=== PATIENT | male | born 1970 | race Caucasian/White ===

== ENCOUNTER 2023-07-05 11:48 | Inpatient (IN) | payer OTHER ==
[2023-07-05] MEDS ORDERED: NALOXONE HCL (KLOXXADO) 8 MG SPRAY NS PRN (12:26)
[2023-07-05] MEDS ORDERED: BISMUTH SUBSALICYLATE 524 MG/30 ML PO PRN (12:26)
[2023-07-05] MEDS ORDERED: LOPERAMIDE HCL 2 MG CAPSULE PO PRN (12:26)
[2023-07-05] MEDS ORDERED: BENZONATATE 200 MG CAPSULE PO PRN (12:26)
[2023-07-05] MEDS ORDERED: BENZOCAINE/MENTHOL (CHLORASEPTIC ) LOZENGE MM PRN (12:26)
[2023-07-05] MEDS ORDERED: POLYETHYLENE GLYCOL (HEALTHYLAX) 3350 17 GM PACKET PO PRN (12:26)
[2023-07-05] MEDS ORDERED: guaiFENesin 600 MG TABLET.ER (FP) PO PRN (12:26)
[2023-07-05] MEDS ORDERED: NALOXONE HCL 0.4 MG/ML VIAL IM PRN (12:26)
[2023-07-05] MEDS ORDERED: MAG HYDROX/AL HYDROX/SIMETH 30 ML UNIT-DOSE CUP PO PRN (12:26)
[2023-07-05] MEDS ORDERED: ONDANSETRON *ODT* 4 MG TABLET SL PRN (12:26)
[2023-07-05] MEDS ORDERED: METHOCARBAMOL 500 MG TABLET PO PRN (12:26)
[2023-07-05] MEDS ORDERED: DICYCLOMINE HCL 10 MG CAPSULE PO PRN (12:26)
[2023-07-05] MEDS ORDERED: MAGNESIUM HYDROX 2400MG/30ML ORAL SUSPENSION 30 ML CUP PO PRN (12:26)
[2023-07-05] MEDS ORDERED: PERMETHRIN (NIX CREAM SCALP RINSE) 59 ML 1% BOTTLE TP STA (12:42)
[2023-07-05] MEDS ORDERED: PERMETHRIN (NIX CREAM SCALP RINSE) 59 ML 1% BOTTLE TP ONE (12:42)
[2023-07-05] MEDS ORDERED: BACITRACIN ZINC 15 GM TUBE TOPICAL OINTMENT TP SCH (12:45)
[2023-07-05] MEDS ORDERED: PRENATAL VITAMINS W/ FOLIC ACID TABLET (FP) PO ONE (12:58)
[2023-07-05] MEDS ORDERED: IBUPROFEN 600 MG TABLET (FP) PO ONE (12:58)
[2023-07-05] MEDS ORDERED: NICOTINE 7 MG/24 HOURS TOPICAL PATCH TD ONE (12:58)
[2023-07-05] MEDS: IBUPROFEN 600 MG TABLET (FP) PO PRN ×2 (13:04→18:28)
[2023-07-05] MEDS: NICOTINE 7 MG/24 HOURS TOPICAL PATCH TD SCH (13:06)
[2023-07-05] MEDS: PRENATAL VITAMINS W/ FOLIC ACID TABLET (FP) PO SCH (13:06)
[2023-07-05 13:24] VITALS: BMI 22.7
[2023-07-05] MEDS ORDERED: PERMETHRIN 5% TOPICAL CREAM 60 GM TUBE ONE (14:01)
[2023-07-05] MEDS: ALBUTEROL SO4 HFA INHALER IH PRN (17:15)
[2023-07-05] MEDS ORDERED: TUBERCULIN PPD 5 TU/0.1ML VIAL ID ONE (17:53)
[2023-07-05] MEDS: THIAMINE HCL 100 MG TABLET (FP) PO SCH (21:51)
[2023-07-05] MEDS: MELATONIN 5 MG TABLETS PO SCH (21:51)
[2023-07-05] MEDS: BACITRACIN 0.9 GM PACKET TP SCH (21:51)
[2023-07-06] MEDS: ALBUTEROL SO4 HFA INHALER IH PRN ×5 (00:40→21:46)
[2023-07-06] MEDS: IBUPROFEN 600 MG TABLET (FP) PO PRN ×2 (00:40→13:51)
[2023-07-06] MEDS: IBUPROFEN 400 MG TABLET (FP) PO PRN (06:57)
[2023-07-06] MEDS ORDERED: TUBERCULIN PPD 5 TU/0.1ML VIAL ID ONE (10:14)
[2023-07-06] MEDS: NICOTINE 7 MG/24 HOURS TOPICAL PATCH TD SCH (10:17)
[2023-07-06] MEDS: BACITRACIN 0.9 GM PACKET TP SCH ×2 (10:17→21:46)
[2023-07-06] MEDS: PRENATAL VITAMINS W/ FOLIC ACID TABLET (FP) PO SCH (10:17)
[2023-07-06] MEDS: ACETAMINOPHEN 325 MG TABLET (FP) PO PRN (10:18)
[2023-07-06 10:24] LABS: HEMATOCRIT 43.9 % (35.4-49); HEMOGLOBIN 14.4 GM/dL (11.7-16.9); MCH 31.5 pg (25.7-33.7); MCHC 32.8 g/dl (32.0-35.9); MEAN PLT VOLUME 6.8 fl (7.5-11.1); PLATELET COUNT 396 10^3/uL (134-434); RBC 4.57 M/mm3 (4.00-5.60); RDW 13.7 % (11.9-15.9); WHITE BLOOD COUNT 19.4 K/mm3 (4.0-10.0)
[2023-07-06 10:27] LABS: CHLORIDE 108 mmol/L (98-107); POTASSIUM 4.7 mmol/L (3.5-5.1); SODIUM 138 mmol/L (136-145)
[2023-07-06 10:29] LABS: CALCIUM 8.7 mg/dL (8.5-10.1)
[2023-07-06 10:30] LABS: ALBUMIN 3.1 g/dl (3.4-5.0); ANION GAP 1 mmol/L (4-13); BLOOD UREA NITROGEN 21.4 mg/dL (7-18); CO2 29 mmol/L (21-32); GLUCOSE,RANDOM 153 mg/dL (74-106)
[2023-07-06 10:33] LABS: CREATININE 0.9 mg/dL (0.55-1.3); SGOT/AST 19 U/L (15-37); SGPT/ALT 26 U/L (13-61)
[2023-07-06 10:35] LABS: BILIRUBIN,TOTAL 0.3 mg/dL (0.2-1); TOT PROT 5.9 g/dl (6.4-8.2)
[2023-07-06 10:36] LABS: ALK PHOS 89 U/L (45-117)
[2023-07-06] MEDS: BACLOFEN 10 MG TABLET (FP) PO SCH ×2 (13:50→21:46)
[2023-07-06] MEDS: MELATONIN 5 MG TABLETS PO SCH (21:46)
[2023-07-06] MEDS: THIAMINE HCL 100 MG TABLET (FP) PO SCH (21:46)
[2023-07-06] MEDS: QUEtiapine FUMARATE 50 MG TABLET PO SCH (21:47)
[2023-07-07] MEDS: ALBUTEROL SO4 HFA INHALER IH PRN ×6 (01:30→21:28)
[2023-07-07] MEDS ORDERED: TUBERCULIN PPD 5 TU/0.1ML VIAL ID ONE ×2 (04:00→06:00)
[2023-07-07] MEDS: BACLOFEN 10 MG TABLET (FP) PO SCH ×4 (06:57→21:29)
[2023-07-07] MEDS: IBUPROFEN 600 MG TABLET (FP) PO PRN ×3 (06:58→21:29)
[2023-07-07 07:07] VITALS: RESP 18
[2023-07-07] MEDS: NICOTINE 7 MG/24 HOURS TOPICAL PATCH TD SCH (10:31)
[2023-07-07] MEDS: PRENATAL VITAMINS W/ FOLIC ACID TABLET (FP) PO SCH (10:31)
[2023-07-07] MEDS: ACETAMINOPHEN 325 MG TABLET (FP) PO PRN (10:32)
[2023-07-07] MEDS: BACITRACIN 0.9 GM PACKET TP SCH ×2 (11:20→21:32)
[2023-07-07] MEDS: FLUTICASONE PROP 0.05% 16 GM NASAL SPRAY NS SCH (13:39)
[2023-07-07] MEDS ORDERED: hydrOXYzine PAMOATE 50 MG CAPSULE (FP) PO ONE (13:55)
[2023-07-07] MEDS: hydrOXYzine PAMOATE 25 MG CAPSULE (FP) PO PRN (21:29)
[2023-07-07] MEDS: QUEtiapine FUMARATE 50 MG TABLET PO SCH (21:29)
[2023-07-07] MEDS: THIAMINE HCL 100 MG TABLET (FP) PO SCH (21:29)
[2023-07-07] MEDS: MELATONIN 5 MG TABLETS PO SCH (21:29)
[2023-07-07] MEDS: ARTIFICIAL TEARS (POLYVINYL ALCOHOL) OPTH DROPS OU PRN (21:30)
[2023-07-08] MEDS: BACLOFEN 10 MG TABLET (FP) PO SCH ×3 (07:00→21:38)
[2023-07-08] MEDS: IBUPROFEN 600 MG TABLET (FP) PO PRN ×2 (07:02→13:46)
[2023-07-08] MEDS: ALBUTEROL SO4 HFA INHALER IH PRN ×3 (07:03→21:39)
[2023-07-08] MEDS: ARTIFICIAL TEARS (POLYVINYL ALCOHOL) OPTH DROPS OU PRN (07:04)
[2023-07-08] MEDS: hydrOXYzine PAMOATE 25 MG CAPSULE (FP) PO PRN ×2 (07:06→21:40)
[2023-07-08] MEDS: PRENATAL VITAMINS W/ FOLIC ACID TABLET (FP) PO SCH (10:20)
[2023-07-08] MEDS: BACITRACIN 0.9 GM PACKET TP SCH ×2 (10:20→21:38)
[2023-07-08] MEDS: NICOTINE 7 MG/24 HOURS TOPICAL PATCH TD SCH (10:21)
[2023-07-08] MEDS: FLUTICASONE PROP 0.05% 16 GM NASAL SPRAY NS SCH (10:21)
[2023-07-08] MEDS: QUEtiapine FUMARATE 50 MG TABLET PO SCH (21:38)
[2023-07-08] MEDS: THIAMINE HCL 100 MG TABLET (FP) PO SCH (21:38)
[2023-07-08] MEDS: MELATONIN 5 MG TABLETS PO SCH (21:38)
[2023-07-08] MEDS: IBUPROFEN 400 MG TABLET (FP) PO PRN (21:40)
[2023-07-09] MEDS: ALBUTEROL SO4 HFA INHALER IH PRN ×4 (06:39→19:45)
[2023-07-09] MEDS: BACLOFEN 10 MG TABLET (FP) PO SCH ×3 (06:39→21:40)
[2023-07-09] MEDS: hydrOXYzine PAMOATE 25 MG CAPSULE (FP) PO PRN ×2 (06:41→19:45)
[2023-07-09] MEDS: IBUPROFEN 600 MG TABLET (FP) PO PRN ×2 (06:41→13:48)
[2023-07-09] MEDS: ARTIFICIAL TEARS (POLYVINYL ALCOHOL) OPTH DROPS OU PRN (06:42)
[2023-07-09] MEDS: FLUTICASONE PROP 0.05% 16 GM NASAL SPRAY NS SCH (10:14)
[2023-07-09] MEDS: BACITRACIN 0.9 GM PACKET TP SCH ×2 (10:14→22:37)
[2023-07-09] MEDS: PRENATAL VITAMINS W/ FOLIC ACID TABLET (FP) PO SCH (10:14)
[2023-07-09] MEDS: NICOTINE 7 MG/24 HOURS TOPICAL PATCH TD SCH (10:15)
[2023-07-09] MEDS: MELATONIN 5 MG TABLETS PO SCH (21:40)
[2023-07-09] MEDS: THIAMINE HCL 100 MG TABLET (FP) PO SCH (21:40)
[2023-07-09] MEDS: QUEtiapine FUMARATE 50 MG TABLET PO SCH (21:40)
[2023-07-09] MEDS: IBUPROFEN 400 MG TABLET (FP) PO PRN (21:41)
[2023-07-10] MEDS: BACLOFEN 10 MG TABLET (FP) PO SCH (06:47)
[2023-07-10] MEDS: hydrOXYzine PAMOATE 25 MG CAPSULE (FP) PO PRN (06:48)
[2023-07-10 07:04] VITALS: BP 118/70; PULSE 76; TEMP 97.4
[2023-07-10] MEDS: PRENATAL VITAMINS W/ FOLIC ACID TABLET (FP) PO SCH (09:43)
[2023-07-10] MEDS: NICOTINE 7 MG/24 HOURS TOPICAL PATCH TD SCH (09:44)
[2023-07-10] MEDS: BACITRACIN 0.9 GM PACKET TP SCH (09:44)
[2023-07-10] MEDS: FLUTICASONE PROP 0.05% 16 GM NASAL SPRAY NS SCH (09:44)
== END 2023-07-10 10:00 | disposition home or self-care (01) | DRG 772 ==
LOC: YASAS 11:48 → Y5N 15:30
PROVIDERS: ADMIT Allergy & Immunology; ATTEND Psychiatry & Neurology Pain Medicine
PROC: HZ42ZZZ Group Counseling for Substance Abuse Treatment, Cognitive-Behavioral (ICD-10-PCS; principal; 2023-07-05)
DX: F14.20 Cocaine dependence, uncomplicated (principal); F17.210 Nicotine dependence, cigarettes, uncomplicated; F41.9 Anxiety disorder, unspecified; F32.9 Major depressive disorder, single episode, unspecified; F43.10 Post-traumatic stress disorder, unspecified; J45.909 Unspecified asthma, uncomplicated; M62.838 Other muscle spasm; Z87.828 Personal history of other (healed) physical injury and trauma; Z59.01 Sheltered homelessness; Z56.0 Unemployment, unspecified
CPT/HCPCS: 36415; 80053; 80307; 82962; 83036; 85027; 86780; 87635; 93005; 93010; J0475; Q0162

== ENCOUNTER 2023-07-20 18:49 | Inpatient (IN) | payer OTHER ==
[2023-07-20 19:24] VITALS: BMI 23.2
[2023-07-20] MEDS ORDERED: ACETAMINOPHEN 325 MG TABLET (FP) PO PRN ×2 (19:40→21:46)
[2023-07-20] MEDS ORDERED: MAG HYDROX/AL HYDROX/SIMETH 30 ML UNIT-DOSE CUP PO PRN (19:40)
[2023-07-20] MEDS ORDERED: BENZONATATE 200 MG CAPSULE PO PRN (19:40)
[2023-07-20] MEDS ORDERED: BENZOCAINE/MENTHOL (CHLORASEPTIC ) LOZENGE MM PRN (19:40)
[2023-07-20] MEDS ORDERED: LOPERAMIDE HCL 2 MG CAPSULE PO PRN (19:40)
[2023-07-20] MEDS ORDERED: POLYETHYLENE GLYCOL (HEALTHYLAX) 3350 17 GM PACKET PO PRN (19:40)
[2023-07-20] MEDS ORDERED: MAGNESIUM HYDROX 2400MG/30ML ORAL SUSPENSION 30 ML CUP PO PRN (19:40)
[2023-07-20] MEDS ORDERED: guaiFENesin 600 MG TABLET.ER (FP) PO PRN (19:40)
[2023-07-20] MEDS ORDERED: COLLOIDAL OATMEAL 1 BAR EACH TP PRN (19:40)
[2023-07-20] MEDS ORDERED: P-EPHED 60MG/TRIPROLIDI 2.5MG TABLET PO PRN (19:40)
[2023-07-20] MEDS ORDERED: IBUPROFEN 400 MG TABLET (FP) PO PRN (19:40)
[2023-07-20] MEDS: QUEtiapine FUMARATE 50 MG TABLET PO ONE (21:56)
[2023-07-20] MEDS: LIDOCAINE PATCH REMOVAL MC SCH (21:56)
[2023-07-20] MEDS: CEFUROXIME AXETIL 500 MG TABLET PO SCH (21:56)
[2023-07-20] MEDS: MELATONIN 5 MG TABLETS PO SCH (21:57)
[2023-07-20] MEDS: THIAMINE HCL 100 MG TABLET (FP) PO SCH (21:57)
[2023-07-20] MEDS ORDERED: PATIENT'S OWN MEDICATION (NON-FORMULARY) (Lidocaine Patch Removal 1 EACH Each) MC SCH (22:00)
[2023-07-20] MEDS: BUDESONIDE/FORMETEROL FUMARATE 160/4.5 mcg INHALER IH SCH (22:20)
[2023-07-21] MEDS: BUDESONIDE/FORMETEROL FUMARATE 160/4.5 mcg INHALER IH SCH ×2 (09:53→21:19)
[2023-07-21] MEDS: CEFUROXIME AXETIL 500 MG TABLET PO SCH ×2 (09:54→21:19)
[2023-07-21] MEDS: PRENATAL VITAMINS W/ FOLIC ACID TABLET (FP) PO SCH (09:54)
[2023-07-21] MEDS: LIDOCAINE 4% PATCH TP SCH (09:55)
[2023-07-21] MEDS: FLUTICASONE PROP 0.05% 16 GM NASAL SPRAY NS SCH (09:55)
[2023-07-21] MEDS ORDERED: NICOTINE 14 MG/24 HOURS TOPICAL PATCH TD SCH (10:00)
[2023-07-21] MEDS ORDERED: DOXYCYCLINE HYCLATE 100 MG CAPSULE PO SCH (10:00)
[2023-07-21] MEDS: DOXYCYCLINE HYCLATE 100 MG TABLET PO SCH ×2 (10:18→17:53)
[2023-07-21] MEDS ORDERED: NICOTINE 14 MG/24 HOURS TOPICAL PATCH TD PRN (11:38)
[2023-07-21] MEDS: BACLOFEN 10 MG TABLET (FP) PO PRN (17:55)
[2023-07-21] MEDS: MELATONIN 5 MG TABLETS PO SCH (21:18)
[2023-07-21] MEDS: THIAMINE HCL 100 MG TABLET (FP) PO SCH (21:18)
[2023-07-21] MEDS: QUEtiapine FUMARATE 50 MG TABLET PO SCH (21:19)
[2023-07-21] MEDS: IBUPROFEN 600 MG TABLET (FP) PO PRN (21:20)
[2023-07-21] MEDS: LIDOCAINE PATCH REMOVAL MC SCH (21:20)
[2023-07-22] MEDS: DOXYCYCLINE HYCLATE 100 MG TABLET PO SCH ×2 (06:39→17:09)
[2023-07-22] MEDS: ALBUTEROL SO4 HFA INHALER IH PRN (09:05)
[2023-07-22] MEDS: hydrOXYzine PAMOATE 25 MG CAPSULE (FP) PO PRN (09:56)
[2023-07-22] MEDS: PRENATAL VITAMINS W/ FOLIC ACID TABLET (FP) PO SCH (09:57)
[2023-07-22] MEDS: CEFUROXIME AXETIL 500 MG TABLET PO SCH ×2 (09:57→21:10)
[2023-07-22] MEDS: BUDESONIDE/FORMETEROL FUMARATE 160/4.5 mcg INHALER IH SCH ×2 (09:58→21:13)
[2023-07-22] MEDS: LIDOCAINE 4% PATCH TP SCH (09:58)
[2023-07-22] MEDS: FLUTICASONE PROP 0.05% 16 GM NASAL SPRAY NS SCH (09:58)
[2023-07-22] MEDS: BACLOFEN 10 MG TABLET (FP) PO PRN ×2 (10:00→21:12)
[2023-07-22] MEDS: LIDOCAINE PATCH REMOVAL MC SCH (21:09)
[2023-07-22] MEDS: QUEtiapine FUMARATE 50 MG TABLET PO SCH (21:10)
[2023-07-22] MEDS: MELATONIN 5 MG TABLETS PO SCH (21:10)
[2023-07-22] MEDS: IBUPROFEN 600 MG TABLET (FP) PO PRN (21:12)
[2023-07-22] MEDS: THIAMINE HCL 100 MG TABLET (FP) PO SCH (21:50)
[2023-07-23] MEDS: DOXYCYCLINE HYCLATE 100 MG TABLET PO SCH ×2 (06:41→17:45)
[2023-07-23] MEDS: BUDESONIDE/FORMETEROL FUMARATE 160/4.5 mcg INHALER IH SCH ×2 (09:35→21:32)
[2023-07-23] MEDS: hydrOXYzine PAMOATE 25 MG CAPSULE (FP) PO PRN (09:36)
[2023-07-23] MEDS: BACLOFEN 10 MG TABLET (FP) PO PRN ×2 (09:36→21:30)
[2023-07-23] MEDS: PRENATAL VITAMINS W/ FOLIC ACID TABLET (FP) PO SCH (09:37)
[2023-07-23] MEDS: CEFUROXIME AXETIL 500 MG TABLET PO SCH ×2 (09:37→21:30)
[2023-07-23] MEDS: FLUTICASONE PROP 0.05% 16 GM NASAL SPRAY NS SCH (09:37)
[2023-07-23] MEDS: LIDOCAINE 4% PATCH TP SCH (09:37)
[2023-07-23] MEDS: LIDOCAINE PATCH REMOVAL MC SCH (21:30)
[2023-07-23] MEDS: QUEtiapine FUMARATE 50 MG TABLET PO SCH (21:30)
[2023-07-23] MEDS: THIAMINE HCL 100 MG TABLET (FP) PO SCH (21:30)
[2023-07-23] MEDS: MELATONIN 5 MG TABLETS PO SCH (21:31)
[2023-07-24] MEDS: DOXYCYCLINE HYCLATE 100 MG TABLET PO SCH ×2 (06:41→18:29)
[2023-07-24] MEDS: hydrOXYzine PAMOATE 25 MG CAPSULE (FP) PO PRN (06:42)
[2023-07-24] MEDS: PRENATAL VITAMINS W/ FOLIC ACID TABLET (FP) PO SCH (09:45)
[2023-07-24] MEDS: FLUTICASONE PROP 0.05% 16 GM NASAL SPRAY NS SCH (09:46)
[2023-07-24] MEDS: CEFUROXIME AXETIL 500 MG TABLET PO SCH ×2 (09:46→21:08)
[2023-07-24] MEDS: BUDESONIDE/FORMETEROL FUMARATE 160/4.5 mcg INHALER IH SCH ×2 (09:46→21:08)
[2023-07-24] MEDS: LIDOCAINE 4% PATCH TP SCH (09:46)
[2023-07-24] MEDS: BACLOFEN 10 MG TABLET (FP) PO PRN (20:26)
[2023-07-24] MEDS: IBUPROFEN 600 MG TABLET (FP) PO PRN (20:26)
[2023-07-24] MEDS: MELATONIN 5 MG TABLETS PO SCH (21:07)
[2023-07-24] MEDS: THIAMINE HCL 100 MG TABLET (FP) PO SCH (21:07)
[2023-07-24] MEDS: QUEtiapine FUMARATE 50 MG TABLET PO SCH (21:08)
[2023-07-24] MEDS: LIDOCAINE PATCH REMOVAL MC SCH (21:08)
[2023-07-25] MEDS: hydrOXYzine PAMOATE 25 MG CAPSULE (FP) PO PRN ×2 (06:53→15:05)
[2023-07-25] MEDS: DOXYCYCLINE HYCLATE 100 MG TABLET PO SCH ×2 (06:53→17:05)
[2023-07-25] MEDS: PRENATAL VITAMINS W/ FOLIC ACID TABLET (FP) PO SCH (09:56)
[2023-07-25] MEDS: BUDESONIDE/FORMETEROL FUMARATE 160/4.5 mcg INHALER IH SCH ×2 (09:58→21:13)
[2023-07-25] MEDS: LIDOCAINE 4% PATCH TP SCH (09:58)
[2023-07-25] MEDS: FLUTICASONE PROP 0.05% 16 GM NASAL SPRAY NS SCH (09:59)
[2023-07-25] MEDS: CEFUROXIME AXETIL 500 MG TABLET PO SCH ×2 (10:33→21:12)
[2023-07-25] MEDS: ALBUTEROL SO4 HFA INHALER IH PRN (17:09)
[2023-07-25] MEDS: IBUPROFEN 600 MG TABLET (FP) PO PRN (19:51)
[2023-07-25] MEDS: BACLOFEN 10 MG TABLET (FP) PO PRN (21:12)
[2023-07-25] MEDS: THIAMINE HCL 100 MG TABLET (FP) PO SCH (21:12)
[2023-07-25] MEDS: MELATONIN 5 MG TABLETS PO SCH (21:12)
[2023-07-25] MEDS: QUEtiapine FUMARATE 50 MG TABLET PO SCH (21:12)
[2023-07-25] MEDS: LIDOCAINE PATCH REMOVAL MC SCH (21:13)
[2023-07-26] MEDS: DOXYCYCLINE HYCLATE 100 MG TABLET PO SCH ×2 (06:31→17:13)
[2023-07-26] MEDS: hydrOXYzine PAMOATE 25 MG CAPSULE (FP) PO PRN ×2 (06:31→14:34)
[2023-07-26] MEDS: LIDOCAINE 4% PATCH TP SCH (09:42)
[2023-07-26] MEDS: CEFUROXIME AXETIL 500 MG TABLET PO SCH (09:43)
[2023-07-26] MEDS: PRENATAL VITAMINS W/ FOLIC ACID TABLET (FP) PO SCH (09:43)
[2023-07-26] MEDS: FLUTICASONE PROP 0.05% 16 GM NASAL SPRAY NS SCH (09:43)
[2023-07-26] MEDS: BUDESONIDE/FORMETEROL FUMARATE 160/4.5 mcg INHALER IH SCH ×2 (09:44→21:15)
[2023-07-26] MEDS: BACLOFEN 10 MG TABLET (FP) PO PRN ×2 (09:45→21:16)
[2023-07-26] MEDS: ALBUTEROL SO4 HFA INHALER IH PRN (12:41)
[2023-07-26] MEDS: IBUPROFEN 600 MG TABLET (FP) PO PRN ×2 (14:36→21:16)
[2023-07-26] MEDS: THIAMINE HCL 100 MG TABLET (FP) PO SCH (21:14)
[2023-07-26] MEDS: MELATONIN 5 MG TABLETS PO SCH (21:14)
[2023-07-26] MEDS: QUEtiapine FUMARATE 50 MG TABLET PO SCH (21:15)
[2023-07-26] MEDS: LIDOCAINE PATCH REMOVAL MC SCH (21:15)
[2023-07-27] MEDS: PRENATAL VITAMINS W/ FOLIC ACID TABLET (FP) PO SCH (09:38)
[2023-07-27] MEDS: ALBUTEROL SO4 HFA INHALER IH PRN (09:38)
[2023-07-27] MEDS: FLUTICASONE PROP 0.05% 16 GM NASAL SPRAY NS SCH (09:38)
[2023-07-27] MEDS: BUDESONIDE/FORMETEROL FUMARATE 160/4.5 mcg INHALER IH SCH ×2 (09:39→21:15)
[2023-07-27] MEDS: LIDOCAINE 4% PATCH TP SCH (09:39)
[2023-07-27] MEDS: BACLOFEN 10 MG TABLET (FP) PO PRN ×2 (09:41→21:16)
[2023-07-27] MEDS: hydrOXYzine PAMOATE 25 MG CAPSULE (FP) PO PRN ×2 (09:41→21:15)
[2023-07-27] MEDS ORDERED: LIDOCAINE 4% PATCH TP PRN (15:44)
[2023-07-27] MEDS: MELATONIN 5 MG TABLETS PO SCH (21:15)
[2023-07-27] MEDS: QUEtiapine FUMARATE 50 MG TABLET PO SCH (21:15)
[2023-07-27] MEDS: THIAMINE HCL 100 MG TABLET (FP) PO SCH (21:15)
[2023-07-27] MEDS: LIDOCAINE PATCH REMOVAL MC SCH (21:15)
[2023-07-28] MEDS: hydrOXYzine PAMOATE 25 MG CAPSULE (FP) PO PRN ×2 (06:46→21:30)
[2023-07-28] MEDS: PRENATAL VITAMINS W/ FOLIC ACID TABLET (FP) PO SCH (10:01)
[2023-07-28] MEDS: FLUTICASONE PROP 0.05% 16 GM NASAL SPRAY NS SCH (10:01)
[2023-07-28] MEDS: BUDESONIDE/FORMETEROL FUMARATE 160/4.5 mcg INHALER IH SCH ×2 (10:01→21:31)
[2023-07-28] MEDS: ALBUTEROL SO4 HFA INHALER IH PRN (16:44)
[2023-07-28] MEDS: QUEtiapine FUMARATE 50 MG TABLET PO SCH (21:30)
[2023-07-28] MEDS: MELATONIN 5 MG TABLETS PO SCH (21:31)
[2023-07-28] MEDS: THIAMINE HCL 100 MG TABLET (FP) PO SCH (21:31)
[2023-07-28] MEDS: LIDOCAINE PATCH REMOVAL MC SCH (21:50)
[2023-07-29] MEDS: hydrOXYzine PAMOATE 25 MG CAPSULE (FP) PO PRN ×3 (06:46→21:21)
[2023-07-29] MEDS: BACLOFEN 10 MG TABLET (FP) PO PRN ×2 (06:47→21:21)
[2023-07-29] MEDS: FLUTICASONE PROP 0.05% 16 GM NASAL SPRAY NS SCH (09:17)
[2023-07-29] MEDS: BUDESONIDE/FORMETEROL FUMARATE 160/4.5 mcg INHALER IH SCH ×2 (09:17→21:21)
[2023-07-29] MEDS: PRENATAL VITAMINS W/ FOLIC ACID TABLET (FP) PO SCH (09:17)
[2023-07-29] MEDS: IBUPROFEN 600 MG TABLET (FP) PO PRN (09:18)
[2023-07-29] MEDS: ALBUTEROL SO4 HFA INHALER IH PRN (19:30)
[2023-07-29] MEDS: THIAMINE HCL 100 MG TABLET (FP) PO SCH (21:21)
[2023-07-29] MEDS: QUEtiapine FUMARATE 50 MG TABLET PO SCH (21:21)
[2023-07-29] MEDS: LIDOCAINE PATCH REMOVAL MC SCH (21:21)
[2023-07-29] MEDS: MELATONIN 5 MG TABLETS PO SCH (21:21)
[2023-07-30] MEDS: ALBUTEROL SO4 HFA INHALER IH PRN (09:13)
[2023-07-30] MEDS: PRENATAL VITAMINS W/ FOLIC ACID TABLET (FP) PO SCH (10:13)
[2023-07-30] MEDS: BUDESONIDE/FORMETEROL FUMARATE 160/4.5 mcg INHALER IH SCH ×2 (10:13→21:19)
[2023-07-30] MEDS: FLUTICASONE PROP 0.05% 16 GM NASAL SPRAY NS SCH (10:14)
[2023-07-30] MEDS: IBUPROFEN 600 MG TABLET (FP) PO PRN (10:15)
[2023-07-30] MEDS: hydrOXYzine PAMOATE 25 MG CAPSULE (FP) PO PRN ×2 (10:15→21:20)
[2023-07-30] MEDS: QUEtiapine FUMARATE 50 MG TABLET PO SCH (21:19)
[2023-07-30] MEDS: MELATONIN 5 MG TABLETS PO SCH (21:19)
[2023-07-30] MEDS: LIDOCAINE PATCH REMOVAL MC SCH (21:19)
[2023-07-30] MEDS: THIAMINE HCL 100 MG TABLET (FP) PO SCH (21:19)
[2023-07-31] MEDS: BUDESONIDE/FORMETEROL FUMARATE 160/4.5 mcg INHALER IH SCH ×2 (09:51→21:09)
[2023-07-31] MEDS: FLUTICASONE PROP 0.05% 16 GM NASAL SPRAY NS SCH (09:51)
[2023-07-31] MEDS: PRENATAL VITAMINS W/ FOLIC ACID TABLET (FP) PO SCH (09:52)
[2023-07-31] MEDS: hydrOXYzine PAMOATE 25 MG CAPSULE (FP) PO PRN ×2 (09:53→21:10)
[2023-07-31] MEDS: IBUPROFEN 600 MG TABLET (FP) PO PRN (17:22)
[2023-07-31] MEDS: ALBUTEROL SO4 HFA INHALER IH PRN (17:23)
[2023-07-31] MEDS: MELATONIN 5 MG TABLETS PO SCH (21:08)
[2023-07-31] MEDS: THIAMINE HCL 100 MG TABLET (FP) PO SCH (21:08)
[2023-07-31] MEDS: QUEtiapine FUMARATE 50 MG TABLET PO SCH (21:09)
[2023-07-31] MEDS: LIDOCAINE PATCH REMOVAL MC SCH (21:09)
[2023-07-31] MEDS: BACLOFEN 10 MG TABLET (FP) PO PRN (21:09)
[2023-08-01] MEDS: hydrOXYzine PAMOATE 25 MG CAPSULE (FP) PO PRN (06:41)
[2023-08-01] MEDS: BACLOFEN 10 MG TABLET (FP) PO PRN (10:03)
[2023-08-01] MEDS: PRENATAL VITAMINS W/ FOLIC ACID TABLET (FP) PO SCH (10:03)
[2023-08-01] MEDS: BUDESONIDE/FORMETEROL FUMARATE 160/4.5 mcg INHALER IH SCH ×2 (10:03→21:10)
[2023-08-01] MEDS: FLUTICASONE PROP 0.05% 16 GM NASAL SPRAY NS SCH (10:52)
[2023-08-01] MEDS: ALBUTEROL SO4 HFA INHALER IH PRN (19:03)
[2023-08-01] MEDS: LIDOCAINE PATCH REMOVAL MC SCH (21:09)
[2023-08-01] MEDS: MELATONIN 5 MG TABLETS PO SCH (21:10)
[2023-08-01] MEDS: THIAMINE HCL 100 MG TABLET (FP) PO SCH (21:10)
[2023-08-01] MEDS: QUEtiapine FUMARATE 50 MG TABLET PO SCH (21:10)
[2023-08-02] MEDS: ALBUTEROL SO4 HFA INHALER IH PRN ×2 (06:52→13:15)
[2023-08-02] MEDS: FLUTICASONE PROP 0.05% 16 GM NASAL SPRAY NS SCH (09:34)
[2023-08-02] MEDS: PRENATAL VITAMINS W/ FOLIC ACID TABLET (FP) PO SCH (09:35)
[2023-08-02] MEDS: hydrOXYzine PAMOATE 25 MG CAPSULE (FP) PO PRN ×2 (09:35→21:17)
[2023-08-02] MEDS: BUDESONIDE/FORMETEROL FUMARATE 160/4.5 mcg INHALER IH SCH ×2 (09:35→21:17)
[2023-08-02] MEDS: LIDOCAINE PATCH REMOVAL MC SCH (21:17)
[2023-08-02] MEDS: MELATONIN 5 MG TABLETS PO SCH (21:17)
[2023-08-02] MEDS: THIAMINE HCL 100 MG TABLET (FP) PO SCH (21:17)
[2023-08-02] MEDS: BACLOFEN 10 MG TABLET (FP) PO PRN (21:17)
[2023-08-02] MEDS: QUEtiapine FUMARATE 50 MG TABLET PO SCH (21:17)
[2023-08-03 06:49] VITALS: BP 102/73; PULSE 63; RESP 16; TEMP 97.7
[2023-08-03] MEDS: ALBUTEROL SO4 HFA INHALER IH PRN (08:30)
[2023-08-03] MEDS: PRENATAL VITAMINS W/ FOLIC ACID TABLET (FP) PO SCH (09:00)
[2023-08-03] MEDS: FLUTICASONE PROP 0.05% 16 GM NASAL SPRAY NS SCH (09:00)
[2023-08-03] MEDS: BUDESONIDE/FORMETEROL FUMARATE 160/4.5 mcg INHALER IH SCH (09:00)
== END 2023-08-03 09:06 | disposition home or self-care (01) | DRG 772 ==
LOC: YASAS 18:49 → Y3E 21:34
PROVIDERS: ADMIT Allergy & Immunology; ATTEND Psychiatry & Neurology Pain Medicine
PROC: HZ42ZZZ Group Counseling for Substance Abuse Treatment, Cognitive-Behavioral (ICD-10-PCS; principal; 2023-07-20)
DX: F14.20 Cocaine dependence, uncomplicated (principal); F17.210 Nicotine dependence, cigarettes, uncomplicated; F41.9 Anxiety disorder, unspecified; F43.10 Post-traumatic stress disorder, unspecified; I95.9 Hypotension, unspecified; N39.0 Urinary tract infection, site not specified; M25.511 Pain in right shoulder; M54.2 Cervicalgia; Z59.01 Sheltered homelessness
CPT/HCPCS: 36415; 71045-TC-FY; 80053; 81003; 82803; 83735; 84100; 85025; 87086; 87635; 93005; 93010; 99285-25; G0378; J0475